=== PATIENT | female | born 1950 | race Caucasian/White ===

== ENCOUNTER 2016-03-02 10:11 | Outpatient (CLI) | payer MEDICAID, OTHER | END 2016-03-02 10:12 | disposition home or self-care (01) | DX: Z12.31 Encounter for screening mammogram for malignant neoplasm of breast (principal) ==

== ENCOUNTER 2016-03-06 07:36 | Outpatient (CLI) | payer OTHER | END 2016-03-06 07:37 | disposition home or self-care (01) | DX: Z01.419 Encounter for gynecological examination (general) (routine) without abnormal findings (principal) ==

== ENCOUNTER 2016-10-15 12:32 | Emergency (ER) | payer OTHER ==
[2016-10-15] MEDS ORDERED: KETOROLAC 60 MG/2 ML VIAL IVP STA (13:16)
[2016-10-15] MEDS ORDERED: AMOX/CLAV 875 MG/125 MG TABLET PO STA (13:17)
--- NOTE | 2016-10-15 13:19 | ED Physician Documentation ---
PD HPI ABD PAIN - Stated complaint Stated Complaint: ABD PX/CONSTIPATION - Chief complaint Chief Complaint: Abd Pain - History obtained from History obtained from: Patient - History of Present Illness Timing - onset: How many days ago (2) Timing - duration: Days (2) Timing - details: Gradual onset Pain level max: 7 Pain level now: 5 Quality: Aching, Pain Location: LLQ Radiation: Other (non-radiating) Improved by: Other (nothing) Worsened by: Palpation Associated symptoms: No: Fever, Nausea, Vomiting, Hematemesis, Diarrhea, Constipation, Melena, Hematochezia, Dysuria Similar symptoms before: Diagnosis (states diverticulitis 10x in past 7 years. States reportedly normal colonoscopy 2 years ago.) Recently seen: Not recently seen Review of Systems Ten Systems: 10 systems reviewed and negative Constitutional: denies: Fever, Chills Ears: denies: Ear pain Nose: denies: Rhinorrhea / runny nose, Congestion Throat: denies: Sore throat Cardiac: denies: Chest pain / pressure Respiratory: denies: Cough GI: denies: Nausea, Vomiting, Diarrhea Skin: denies: Rash Musculoskeletal: denies: Neck pain, Back pain Neurologic: denies: Focal weakness, Numbness, Headache PD PAST MEDICAL HISTORY - Past Medical History Cardiovascular: None Respiratory: None Endocrine/Autoimmune: None GI: Diverticulitis : None HEENT: None Psych: Anxiety Musculoskeletal: Chronic back pain Derm: Eczema - Past Surgical History Past Surgical History: Yes General: Colonoscopy Ortho: Arthroscopic surgery, Carpal Tunnel surgery, Spine surgery - Present Medications Home Medications: Ambulatory Orders Medication Instructions Recorded Confirmed Amox/Clav 875/125 [Augmentin] 1 each PO Q12H #20 tablet 10/15/16 Hydrocodone/Acetaminophen 1 - 2 each PO Q6H PRN #14 tablet 10/15/16 [Hydrocodon-Acetaminophen 5-325] - Allergies Allergies/Adverse Reactions: Allergies Allergy/AdvReac Type Severity Reaction Status Date / Time No Known Drug Allergies Allergy Verified 06/27/14 08:37 - Social History Does the pt smoke?: No Smoking Status: Never smoker Does the pt drink ETOH?: Yes Does the pt have substance abuse?: Yes Substance Use and Type: Marijuana - Immunizations Immunizations are current?: Yes - POLST Patient has POLST: No PD ED PE NORMAL - Vitals Vital signs reviewed: Yes - General General: Alert and oriented X 3, No acute distress, Well developed/nourished - HEENT HEENT: PERRL, Moist mucous membranes - Neck Neck: Supple, no meningeal sign - Cardiac Cardiac: RRR, Strong equal pulses - Respiratory Respiratory: No respiratory distress, Clear bilaterally - Abdomen Abdomen: Soft, Non distended, Other (TTP LLQ, no peritoneal signs) - Back Back: No CVA TTP, No spinal TTP - Derm Derm: Warm and dry - Neuro Neuro: Alert and oriented X 3 - Psych Psych: Normal mood, Normal affect Results - Vitals Vitals: Vital Signs - 24 hr 10/15/16 10/15/16 12:39 15:02 Temperature 35.4 C L 36.7 C Heart Rate 72 68 Respiratory 18 18 Rate Blood Pressure 137/86 H 134/84 H O2 Saturation 100 99 Oxygen O2 Source Room air - Labs Labs: Laboratory Tests 10/15/16 10/15/16 10/15/16 13:10 14:24 14:24 WBC 8.5 RBC 4.28 Hgb 13.4 Hct 39.6 MCV 92.5 MCH 31.2 H MCHC 33.8 RDW 13.5 Plt Count 331 MPV 8.0 Neut # 5.6 Lymph # 2.1 [place] # 0.6 Eos # 0.1 Baso # 0.1 Absolute Nucleated RBC 0.00 Nucleated RBCs 0.0 Sodium 139 Potassium 3.4 L Chloride 107 Carbon Dioxide 24 Anion Gap 8.0 BUN 13 Creatinine 1.0 Estimated GFR (MDRD) 56 L Glucose 113 H Calcium 9.0 Total Bilirubin 0.9 AST 21 ALT 20 Alkaline Phosphatase 86 Total Protein 6.6 L Albumin 3.8 Globulin 2.8 Albumin/Globulin Ratio 1.4 Lipase 22 Urine Color DARK YELLOW Urine Clarity CLEAR Urine pH 5.5 Ur Specific [place] 1.025 Urine Protein NEGATIVE Urine Glucose (UA) NEGATIVE Urine Ketones 15 H Urine Occult Blood NEGATIVE Urine Nitrite NEGATIVE Urine Bilirubin NEGATIVE Urine Urobilinogen 0.2 (NORMAL) Ur Leukocyte Esterase NEGATIVE Ur Microscopic Review NOT INDICATED Urine Culture Comments NOT INDICATED PD MEDICAL DECISION MAKING - ED course Complexity details: reviewed results, re-evaluated patient, considered differential, d/w patient ED course: Patient is a 66-year-old female with left lower quadrant abdominal pain, has a history of recurrent diverticulitis. No peritoneal signs on exam, normal white blood cell count, will hold CT at this time given her past history. No evidence of perforation or abscess clinically. Patient is comfortable with holding CT, she will return if she worsens or fails to improve in the next 2 days. Patient is very well-appearing, nontoxic. Afebrile. Tolerating p.o. without difficulty. Patient counseled regarding signs and symptoms for which I believe and urgent re-evaluation would be necessary. Patient with good understanding of and agreement to plan and is comfortable going home at this time This document was made in part using voice recognition software. While efforts are made to proofread this document, sound alike and grammatical errors may occur. Departure - Departure Disposition: Home, Self Care Clinical Impression: Diverticulitis Condition: Good Instructions: ED Diverticulitis Follow-Up: Rosalia Jules ARNP [Primary Care Provider] - Within 1 week Prescriptions: Amox/Clav 875/125 [Augmentin] 1 each PO Q12H #20 tablet Hydrocodone/Acetaminophen [Hydrocodon-Acetaminophen 5-325] 1 - 2 each PO Q6H PRN #14 tablet PRN Reason: pain Comments: Take all antibiotics until gone. Return if you worsen. Do not drink alcohol or drive while on narcotic pain medicine. Note that many narcotic pain relievers also contain tylenol/acetaminophen. Please ensure that your total dose of acetaminophen from all sources does not exceed 3 grams (3000mg) per day. You may constipated on this medication, take a stool softener such as "Colace" twice a day while you are on it. Also recommend a anoy-lvd-ohrzjxe laxative such as senna or MiraLAX any day that you do not have a bowel movement. If you received narcotic pain medication in the emergency department, do not drive or operate machinery for the next 24 hours. Your blood pressure was elevated today on check in to the emergency department. This does not mean that you have hypertension, it is a common phenomenon to check into the emergency department and have elevated blood pressure. I recommend that you see your primary care physician within the week to have it rechecked when you're feeling better. Discharge Date/Time: 10/15/16 15:05
[2016-10-15] MEDS ORDERED: AMOX/CLAV 875 MG/125 MG TABLET PO ONE (13:29)
[2016-10-15] MEDS ORDERED: KETOROLAC 30 MG/ML VIAL ONE (13:29)
[2016-10-15 13:41] LABS: PH,URINE 5.5 PH (5.0-7.5); UA CHARGE (STRIP ONLY) YES; UR CULTURE IF IND NOT INDICATED
[2016-10-15 13:46] LABS: BILIRUBIN,URINE NEGATIVE (NEGATIVE)
[2016-10-15 14:41] LABS: ALBUMIN/GLOBULIN RATIO 1.4 (1.0-2.2); BILIRUBIN,TOTAL 0.9 mg/dL (0.2-1.0); POTASSIUM 3.4 mmol/L (3.5-5.0); TOTAL PROTEIN 6.6 g/dL (6.7-8.2)
[2016-10-15 14:43] LABS: BASOPHILS # (AUTO) 0.1 10^3/uL (0.0-0.1); BASOPHILS % (AUTO) 0.8 %; EOSINOPHILS # (AUTO) 0.1 10^3/uL (0.0-0.7); EOSINOPHILS % (AUTO) 1.7 %; HCT - HEMATOCRIT 39.6 % (37.0-47.0); HGB - HEMOGLOBIN 13.4 g/dL (12.0-16.0); LYMPHOCYTES # (AUTO) 2.1 10^3/uL (1.5-3.5); LYMPHOCYTES % (AUTO) 25.3 %; MEAN CORPUSCULAR HEMOGLOBIN 31.2 pg (27.0-31.0); MEAN CORPUSCULAR HGB CONC 33.8 g/dL (32.0-36.0); MEAN CORPUSCULAR VOLUME 92.5 fL (81.0-99.0); MONOCYTES # (AUTO) 0.6 10^3/uL (0.0-1.0); MONOCYTES % (AUTO) 6.6 %; NEUTROPHILS # (AUTO) 5.6 10^3/uL (1.5-6.6); NEUTROPHILS % (AUTO) 65.6 %; RED BLOOD COUNT 4.28 10^6/uL (4.20-5.40); RED CELL DISTRIBUTION WIDTH 13.5 % (12.0-15.0); UNCORRECTED WHITE BLOOD COUNT 8.5 x10^3/uL; WHITE BLOOD COUNT 8.5 x10^3/uL (4.8-10.8)
[2016-10-15 15:03] VITALS: BP 134/84
== END 2016-10-15 15:05 | disposition home or self-care (01) ==
LOC: ED 12:32
DX: K57.32 Diverticulitis of large intestine without perforation or abscess without bleeding (principal); R03.0 Elevated blood-pressure reading, without diagnosis of hypertension
CPT/HCPCS: 36415; 80053; 81003; 83690; 85025; 96374; 99283; 99284; A9270; 81001; 87086

== ENCOUNTER 2018-04-02 12:58 | Observation (INO) | payer MEDICARE, OTHER ==
[2018-04-02] MEDS ORDERED: SODIUM CHLORIDE 0.9% 1,000 ML IV ONE (13:29)
[2018-04-02] MEDS ORDERED: ONDANSETRON 4 MG/2 ML VIAL IVP STA (13:29)
--- NOTE | 2018-04-02 13:30 | ED Physician Documentation ---
PD HPI ABD PAIN - Stated complaint Stated Complaint: NAUSEA/VOMITING - Chief complaint Chief Complaint: Abd Pain - History obtained from History obtained from: Patient - History of Present Illness Timing - onset: Yesterday (This is a 67-year-old woman with flares of occasional diverticulitis who developed lower abdominal pain especially left lower quadrant yesterday. She went to the clinic and was prescribed Augmentin. After she started the Augmentin she is been vomiting uncontrollably, every few minutes. There is no blood in it. She denies diarrhea. She has not had this problem with her diverticulitis before and she thinks she has had Augmentin before without vomiting.) Review of Systems Ten Systems: 10 systems reviewed and negative Constitutional: reports: Sweats. denies: Fever, Chills GI: reports: Abdominal Pain, Nausea, Vomiting. denies: Diarrhea : reports: Reviewed and negative PD PAST MEDICAL HISTORY - Past Medical History Cardiovascular: None Respiratory: None Endocrine/Autoimmune: None GI: Diverticulitis : None HEENT: None Psych: Anxiety Musculoskeletal: Chronic back pain Derm: Eczema - Past Surgical History Past Surgical History: Yes General: Colonoscopy Ortho: Arthroscopic surgery, Carpal Tunnel surgery, Spine surgery - Present Medications Home Medications: Ambulatory Orders Medication Instructions Recorded Confirmed Amox/Clav 875/125 [Augmentin] 1 each PO Q12H #20 tablet 10/15/16 Hydrocodone/Acetaminophen 1 - 2 each PO Q6H PRN #14 tablet 10/15/16 [Hydrocodon-Acetaminophen 5-325] - Allergies Allergies/Adverse Reactions: Allergies Allergy/AdvReac Type Severity Reaction Status Date / Time No Known Drug Allergies Allergy Verified 06/27/14 08:37 - Social History Does the pt smoke?: No Smoking Status: Never smoker Does the pt drink ETOH?: Yes Does the pt have substance abuse?: Yes - Immunizations Immunizations are current?: Yes - POLST Patient has POLST: No PD ED PE NORMAL - Vitals Vital signs reviewed: Yes - General General: Alert and oriented X 3, Other (She is retching and sweaty) - HEENT HEENT: PERRL, EOMI - Neck Neck: Supple, no meningeal sign, No bony TTP - Cardiac Cardiac: RRR, No murmur - Respiratory Respiratory: No respiratory distress, Clear bilaterally - Abdomen Abdomen: Other (Mild tenderness in the left lower quadrant without surgical signs. Soft. I am unable to test bowel tones on initial evaluation due to active retching) - Back Back: No CVA TTP, No spinal TTP - Derm Derm: Normal color, Warm and dry - Extremities Extremities: No edema, No calf tenderness / cord - Neuro Neuro: Alert and oriented X 3, Normal speech Results - Vitals Vitals: Vital Signs - 24 hr 04/02/18 13:02 Temperature 36.6 C Heart Rate 94 Respiratory 16 Rate Blood Pressure 153/94 H O2 Saturation 99 Oxygen O2 Source Room air - Labs Labs: Laboratory Tests 04/02/18 04/02/18 13:26 13:26 WBC 18.0 H RBC 4.70 Hgb 15.4 Hct 46.4 MCV 98.7 MCH 32.8 H MCHC 33.2 RDW 14.4 Plt Count 336 MPV 8.1 Neut # (Auto) 16.0 H Lymph # (Auto) 0.8 L [place] # (Auto) 1.0 Eos # (Auto) 0.1 Baso # (Auto) 0.1 Absolute Nucleated RBC 0.00 Nucleated RBC % 0.0 Sodium 133 L Potassium 3.5 Chloride 98 L Carbon Dioxide 24 Anion Gap 11.0 BUN 13 Creatinine 1.0 Estimated GFR (MDRD) 56 L Glucose 135 H Calcium 9.1 Total Bilirubin 1.6 H AST 51 H ALT 56 Alkaline Phosphatase 153 H Total Protein 7.3 Albumin 4.0 Globulin 3.3 Albumin/Globulin Ratio 1.2 Lipase 24 - Rads (name of study) CT A/P Radiology: EMP read contemporaneously (Uncomplicated sigmoid diverticulitis) PD MEDICAL DECISION MAKING - ED course ED course: 67-year-old woman with recurrent diverticulitis Presents with Apparent exacerbation of same although marked by severe nausea and vomiting which given that the timing is likely related to the antibiotic she was started on yesterday, Augmentin. It was difficult to control her nausea and vomiting in the emergency department. CT imaging shows uncomplicated diverticulitis, although she does have a pretty significantly elevated white blood cell count of 18,000. Given the persistent nausea and vomiting that we were unable to easily control in the emergency department she requested admission and this is not unreasonable and I spoke with Dr. Aguila for admission at 3:34 PM. Departure - Departure Disposition: [facility] DC/Xfer Clinical Impression: Diverticulitis of gastrointestinal tract Condition: Serious
[2018-04-02 13:34] LABS: BASOPHILS # (AUTO) 0.1 10^3/uL (0.0-0.1); BASOPHILS % (AUTO) 0.4 %; EOSINOPHILS # (AUTO) 0.1 10^3/uL (0.0-0.7); EOSINOPHILS % (AUTO) 0.5 %; HGB - HEMOGLOBIN 15.4 g/dL (12.0-16.0); LYMPHOCYTES # (AUTO) 0.8 10^3/uL (1.5-3.5); LYMPHOCYTES % (AUTO) 4.3 %; MEAN CORPUSCULAR HEMOGLOBIN 32.8 pg (27.0-31.0); MEAN CORPUSCULAR HGB CONC 33.2 g/dL (32.0-36.0); MEAN CORPUSCULAR VOLUME 98.7 fL (81.0-99.0); MEAN PLATELET VOLUME 8.1 fL (7.9-10.8); MONOCYTES % (AUTO) 5.5 %; NEUTROPHILS % (AUTO) 89.3 %; PLT - PLATELET COUNT 336 10^3/uL (130-450); RED CELL DISTRIBUTION WIDTH 14.4 % (12.0-15.0)
[2018-04-02 13:47] LABS: ALBUMIN/GLOBULIN RATIO 1.2 (1.0-2.2); BILIRUBIN,TOTAL 1.6 mg/dL (0.2-1.0); CALCIUM 9.1 mg/dL (8.5-10.3); TOTAL PROTEIN 7.3 g/dL (6.7-8.2)
[2018-04-02] MEDS ORDERED: IOVERSOL 320 100 ML VIAL IVP ONE ×2 (13:56→14:08)
--- NOTE | 2018-04-02 14:37 | CT Report ---
Reason: IV only, LLQ pain Procedure Date: 04/02/2018 Accession Number: [id number] / [id number] Procedure: CT - Abdomen/Pelvis W CPT Code: FULL RESULT: EXAM: CT ABDOMEN AND PELVIS EXAM DATE: 04/02/2018 02:04 PM. CLINICAL HISTORY: IV only, LLQ pain. COMPARISONS: ABDOMEN/PELVIS W/ 06/27/2014 10:44 AM. TECHNIQUE: Routine helical CT imaging was performed through the abdomen and pelvis. IV contrast: 100 cc of Optiray 320. Enteric contrast: No. Reconstructions: Coronal and sagittal. In accordance with CT protocol optimization, one or more of the following dose reduction techniques were utilized for this exam: automated exposure control, adjustment of mA and/or KV based on patient size, or use of iterative reconstructive technique. FINDINGS: Lung Bases: Small paraesophageal hernia. No effusion. Dependent atelectasis is noted. Liver: Normal. No masses. Gallbladder/Bile Ducts: Unremarkable. Spleen: Normal. Pancreas: Normal. Adrenal Glands: Normal. Kidneys: Normal. No masses or hydronephrosis. Peritoneal Cavity/Bowel: No pneumoperitoneum, mass or adenopathy. No collection is noted. There is a long segment of inflamed sigmoid colon demonstrating moderate wall thickening and moderate adjacent fat inflammatory changes. No pneumoperitoneum, mass or loculated collection. Small volume ascites is present. Remaining stomach and small bowel are normal. The appendix is well visualized and normal. Pelvic Organs: Inflammatory changes are noted in the pelvis CT to sigmoid inflammation. Small amount of nonloculated fluid is noted. Otherwise, the bladder and visualized pelvic organs are within normal limits. No collections or adenopathy. No pelvic masses noted. Vasculature: No aneurysms or other significant abnormality. Bones: No osteoblastic or osteolytic lesions are noted. Multilevel degenerative disk disease and facet arthropathy is noted. Mild dextroscoliosis of the lumbar spine is noted. Mild to moderate bilateral hip arthritis. Other: None. IMPRESSION: 1. Sigmoid diverticulitis. No complications such as obstruction, perforation or abscess. Free fluid noted in the pelvis. 2. Normal appendix. RADIA
[2018-04-02] MEDS ORDERED: PROMETHAZINE INJ 25 MG in SODIUM CHLORIDE 0.9% 50 ML IV STA (14:42)
[2018-04-02] MEDS ORDERED: levoFLOXacin 750 MG/150 ML 750 MG/150 ML BAG IV ONE (14:52)
[2018-04-02] MEDS ORDERED: metroNIDAZOLE 500 MG/100 ML 500 MG/100 ML BAG IV ONE (14:52)
[2018-04-02] MEDS ORDERED: HYDROmorphone 1 MG/ML CARPUJECT IVP STA (15:30)
[2018-04-02] MEDS ORDERED: METOCLOPRAMIDE 10 MG/2 ML VIAL IVP STA (15:43)
[2018-04-02] MEDS ORDERED: METOCLOPRAMIDE 10 MG/2 ML VIAL ONE (15:48)
--- NOTE | 2018-04-02 15:51 | HISTORY & PHYSICAL EXAMINATION ---
Chief Complaint - Chief Complaint Chief Complaint: vomiting History of Present Illness - Admitted From Admitted From:: Home - History Obtained From Records Reviewed: ED notes reviewed, History obtained from: Patient and ED - History of Present Illness HPI Comment/Other: 67 year old female with known diverticulosis, and history of diverticulitis "at least 10 x per patient" presented with nausea vomiting after starting Augmentin as outpatient for presumed Diverticulitis. She has known divericulitis with prior hx of diverticulisits, ("~ 10x per patient"). Usually managed at home as outpatient with clear liquids, antibiotics, and advance diet as tolerated. She has had a colonoscopy ~ 4 yrs ago. Never has had a surgical consultation re; possible sigmoid resection. She developed LLQ abdominal pain 03/31 (Sunday) typical of her diverticulitis. Did feel chilled but did not check temperature, , No nausea/ vomiting at that time. No dysuria, no diarrahea, had a soft BM. No blood , no mucus Saw PCP and was prescribed Augmentin for presumed diverticulitis . No imaging or labs drawn at that time, Subsequesnt to starting Augmentin she has developed intractible vomiting, (but didnt get the first dose of Augmentin til late in day) She HAS taken Augmentin in past for diverticulitis, NOT with SE of nausea/vomiting In ED today, hemodynamically stable, with leukocytosis 18K, no bands, Exam notable for LLQ fairly localized tenderness, CT abdomen with sigmoid inflammation, small paraesophageal hernia., , no ductal dilatation, ducts, GB no rmal on imaging ED started levofloxacin / Flagyl, and IV fluid. History - Past Medical History Cardiovascular: reports: None Respiratory: reports: None Neuro: reports: None Endocrine/Autoimmune: reports: None GI: reports: Diverticulitis : reports: None HEENT: reports: None Psych: reports: Anxiety (smokes pot daily as "management") Musculoskeletal: reports: Chronic back pain (smokes marijuana, also uses heating pad) Derm: reports: Eczema MRSA Hx?: No - Past Surgical History General: reports: Colonoscopy (had colonoscopy ~ 4 yrs ago) Ortho: reports: Arthroscopic surgery, Carpal Tunnel surgery, Spine surgery - Family & Social History Family History: Mother: (ischemic bowel(mom), old age ~ 100 dad ), Father: Living arrangement: At home Social History Notes: has 2 sons, healthy, 1 34, 1 37, both fairly local. Patient is an artist / systems designer in [place] - Substance History Use: Uses substance without health or social issues: Alcohol (drinks ~ 2 whisky and 7ups daily, denies ever having withdrawal, can stop w/o issue), Cannabis (smokes cannabis daily, for anxiety managment, and somewhat for pain (LBP)) Dependence: Experiences withdrawal or developed tolerances: NONE - POLST Patient has POLST: No POLST Status: Full Code (discussed with patient) Meds/Allgy - Home Medications Home Medications: Ambulatory Orders Medication Instructions Recorded Confirmed Fiber Gummy 1 ea PO DAILY 04/02/18 04/02/18 Ibuprofen 200 mg PO Q8H PRN 04/02/18 04/02/18 - Allergies Allergies/Adverse Reactions: Allergies Allergy/AdvReac Type Severity Reaction Status Date / Time No Known Drug Allergies Allergy Verified 06/27/14 08:37 Review of Systems - Constitutional Constitutional: reports: Chills (did not check temperature) - Eyes Eyes: reports: Corrective lenses - Ears, Nose & Throat Ears, Nose & Throat: denies: Vertigo, Nasal discharge, Nasal congestion - Cardiovascular Cariovascular: denies: Palpitations, Chest pain, Lightheadedness - Respiratory Respiratory: denies: Cough, Wheezing - Gastrointestinal Gastrointestinal: reports: Other (As per HPI) - Genitourinary Genitourinary: denies: Dysuria, Frequency, Urgency - Musculoskeletal Musculoskeletal: reports: Other (chronic low back pain) - Integumentary Integumentary: reports: Other (excema,not on meds) - Neurological Neurological: denies: General weakness - Endocrine Endocrine: denies: Polyuria, Polydypsia Exam - Vital Signs Vital Signs: Vital Signs x48h Temp Pulse Resp BP Pulse Ox 04/02/18 13:02 36.6 C 94 16 153/94 H 99 - Physical Exam General Appearance: positive: No acute distress, Other (looks tired,) Eyes Bilateral: positive: PERRL, EOMI ENT: positive: Other (Adequate dentition) Respiratory: positive: No respiratory distress, Breath sounds nml Cardiovascular: positive: Regular rate & rhythm, No murmur Peripheral Pulses: positive: 2+ (radial) Abdomen: positive: Nml bowel sounds (localized tenderness with deep palpation LLQ, no guarding, no RBT), No distention, Tenderness. negative: Rebound Back: positive: Other (no point tenderness) Skin: positive: Warm, Dry Extremities: positive: Non-tender. negative: Pedal edema Neurologic/Psychiatric: positive: Oriented x3, Mood/affect nml Conclusion/Plan - Problem List (1) Sigmoid diverticulitis Conclusion/Plan: Sigmoid Diverticulitis confirmed on imaging/uncomplicated/ no pneumoperitoneum no abscess -Continue antibiotics, but change to levofloxacin/ flagyl -IV hydration - clear liquids for now - serial exams Leukocytosis likley related to same/ recheck in am/ expect improvement After d/c consider outpatiient surgical consultation since has had before (2) Leukocytosis Conclusion/Plan: 2) leukocytosis; as above suspect r/t #1/ no bandemia re check in AM (3) Nausea & vomiting Conclusion/Plan: 3) N/V ? related to Augmentin (and also r/t primary problem) Given that she has tolerated augmentin in past,I suspect more likely the N/v is related tothe primary infection (and had progressed to the point of assoicated N/V ~ time she got her 1st dose Augmentin) prn Zofran (4) Elevated bilirubin Conclusion/Plan: Mild elevation 1.6, ? [place] since not taking PO, recheck in am if elevated still on 04/03 will fractionate (5) Venous thromboembolism (VTE) prophylaxis provided within 24 hours of arrival Conclusion/Plan: VTE prophylaxis Lovenox 40 mg/ day Code Status Full - Lab Results Fish Bones: 04/03/18 04:30 04/03/18 04:30 Core Measures - Anticipated LOS I expect patient to be DC'd or transferred within 96 hours.: Yes - Issues Hospital Issues and Management Plan: 1
[2018-04-02] MEDS ORDERED: levoFLOXacin 750 MG/150 ML 750 MG/150 ML BAG IV SCH (16:00)
[2018-04-02] MEDS: SODIUM CHLORIDE 0.9% 1,000 ML IV SCH ×2 (17:03→21:07)
[2018-04-02] MEDS: SODIUM CHLORIDE FLUSH 0.9% 10 ML SYRINGE IVP SCH (17:07)
[2018-04-02 20:17] LABS: GLUCOSE, URINE (UA) NEGATIVE (NEGATIVE); KETONES,URINE (UA) >=80 mg/dL (NEGATIVE); LEUKOCYTE ESTERASE, URINE NEGATIVE (NEGATIVE); NITRITE,URINE NEGATIVE (NEGATIVE); OCCULT BLOOD,URINE NEGATIVE (NEGATIVE); PH,URINE 6.5 PH (5.0-7.5); PROTEIN,URINE 30 mg/dL (NEGATIVE); UROBILINOGEN,URINE 0.2 (NORMAL) E.U./dL (NORMAL)
[2018-04-02 20:22] LABS: BILIRUBIN,URINE NEGATIVE (NEGATIVE); CLARITY,URINE CLEAR (CLEAR); ICTOTEST,URINE NEGATIVE
[2018-04-02 20:30] LABS: BACTERIA,URINE None Seen /HPF (None Seen); RBC,URINE None Seen /HPF (0-5); SQUAMOUS EPITHELIAL CELL,UR RARE Squamous (<= Few)
[2018-04-02] MEDS ORDERED: HYDROmorphone 2 MG/ML VIAL IVP PRN (21:33)
[2018-04-02] MEDS ORDERED: HYDROmorphone 1 MG/ML CARPUJECT IVP PRN ×2 (22:00→22:51)
[2018-04-02] MEDS: metroNIDAZOLE 500 MG/100 ML 500 MG/100 ML BAG IV SCH (22:18)
[2018-04-03] MEDS: SODIUM CHLORIDE FLUSH 0.9% 10 ML SYRINGE IVP SCH ×4 (02:06→23:49)
[2018-04-03 04:56] LABS: BASOPHILS # (AUTO) 0.1 10^3/uL (0.0-0.1); BASOPHILS % (AUTO) 0.8 %; EOSINOPHILS # (AUTO) 0.2 10^3/uL (0.0-0.7); EOSINOPHILS % (AUTO) 1.5 %; HGB - HEMOGLOBIN 13.7 g/dL (12.0-16.0); LYMPHOCYTES # (AUTO) 1.5 10^3/uL (1.5-3.5); LYMPHOCYTES % (AUTO) 12.8 %; MEAN CORPUSCULAR HEMOGLOBIN 32.3 pg (27.0-31.0); MEAN CORPUSCULAR HGB CONC 33.2 g/dL (32.0-36.0); MEAN CORPUSCULAR VOLUME 97.4 fL (81.0-99.0); MEAN PLATELET VOLUME 8.1 fL (7.9-10.8); MONOCYTES # (AUTO) 0.8 10^3/uL (0.0-1.0); MONOCYTES % (AUTO) 6.9 %; NEUTROPHILS # (AUTO) 9.1 10^3/uL (1.5-6.6); PLT - PLATELET COUNT 300 10^3/uL (130-450); RED BLOOD COUNT 4.23 10^6/uL (4.20-5.40); RED CELL DISTRIBUTION WIDTH 14.4 % (12.0-15.0); WHITE BLOOD COUNT 11.6 x10^3/uL (4.8-10.8)
[2018-04-03 05:09] LABS: ALBUMIN 3.4 g/dL (3.2-5.5); ALBUMIN/GLOBULIN RATIO 1.1 (1.0-2.2); CALCIUM 8.9 mg/dL (8.5-10.3); CREATININE 1.1 mg/dL (0.4-1.0); TOTAL PROTEIN 6.5 g/dL (6.7-8.2)
[2018-04-03] MEDS: ONDANSETRON 4 MG/2 ML VIAL IVP PRN ×2 (05:12→14:38)
[2018-04-03] MEDS: HYDROmorphone 0.5 MG/0.5 ML SYRINGE IVP PRN ×4 (06:29→22:52)
[2018-04-03] MEDS: metroNIDAZOLE 500 MG/100 ML 500 MG/100 ML BAG IV SCH ×3 (06:30→22:57)
[2018-04-03] MEDS: SODIUM CHLORIDE FLUSH 0.9% 10 ML SYRINGE IVP PRN ×2 (06:30→22:52)
[2018-04-03] MEDS: POLYETHYLENE GLYCOL 3350 17 GM PACKET PO SCH (08:51)
[2018-04-03] MEDS: ENOXAPARIN 40 MG/0.4 ML SYRINGE SUBQ SCH (08:51)
[2018-04-03] MEDS: SODIUM CHLORIDE 0.9% 1,000 ML IV SCH ×2 (08:52→22:48)
--- NOTE | 2018-04-03 13:13 | PROVIDER PROGRESS NOTE ---
Subjective - Prog Note Date Prog Note Date: 04/03/18 Prog Note Time: 13:23 (seen ~ 9am) - Subjective Pt reports feeling: Improved (but still LLQ pain, and still nauseated) Current Medications - Current Medications Current Medications: Active Medications Enoxaparin Sodium (Lovenox) 40 mg SUBQ DAILY [facility] Last Admin: 04/03/18 08:51 Dose: 40 mg Hydromorphone HCl (Dilaudid Inj Syringe) 0.5 mg IVP Q2H PRN PRN Reason: PAIN Last Admin: 04/03/18 08:50 Dose: 0.5 mg Sodium Chloride (Normal Saline 0.9%) 1,000 mls @ 100 mls/hr IV .Q10H [facility] Last Admin: 04/03/18 08:52 Dose: 100 mls/hr Metronidazole (Flagyl 500 Mg/100 Ml) 500 mg in 100 mls @ 100 mls/hr IV Q8H [facility] Last Infusion: 04/03/18 07:50 Dose: Infused Levofloxacin (Levaquin 750 Mg/150 Ml) 750 mg in 150 mls @ 100 mls/hr IV Q24H [facility] Ondansetron HCl (Zofran Inj) 4 mg IVP Q6HR PRN PRN Reason: Nausea / Vomiting Last Admin: 04/03/18 05:12 Dose: 4 mg Polyethylene Glycol (Miralax) 17 gm PO DAILY [facility] Last Admin: 04/03/18 08:51 Dose: 17 gm Sodium Chloride (Normal Saline Flush 0.9%) 10 ml IVP PRN PRN PRN Reason: NEEDED PER PROVIDER ORDERS Last Admin: 04/03/18 06:30 Dose: 10 ml Sodium Chloride (Normal Saline Flush 0.9%) 10 ml IVP 0100,0900,1700 [facility] Last Admin: 04/03/18 05:11 Dose: 10 ml Fiber Gummy 1 ea PO DAILY 04/02/18 Ibuprofen 200 mg PO Q8H PRN 04/02/18 Objective - Vital Signs/Intake & Output Reviewed Vital Signs: Yes Vital Signs: Vital Signs x48h Temp Pulse Resp BP Pulse Ox 04/03/18 07:59 36.4 C L 92 14 157/76 H 98 Intake & Output: Intake & Output 03/31/18 04/01/18 04/02/18 04/03/18 23:59 23:59 23:59 23:59 Intake Total 0834.313 5094 Output Total 978 551 Balance 1178.621 5596 - Objective General Appearance: positive: No acute distress, Alert, Other (looks tired, but nontoxic) Eyes Bilateral: positive: Normal inspection Respiratory: positive: No respiratory distress, Breath sounds nml Cardiovascular: positive: Regular rate & rhythm, No murmur Abdomen: positive: Nml bowel sounds, No distention. negative: Tenderness (tender LLQ to deep palpation, no RBT, no guarding) Skin: positive: Warm, Dry Neurologic/Psychiatric: positive: Oriented x3, Mood/affect nml - Lab Results Fish Bones: 04/03/18 04:30 04/03/18 04:30 Other Labs: Lab Results x24hrs 04/03/18 04/03/18 04/02/18 Range/Units 04:30 04:30 19:40 WBC 11.6 H (4.8-10.8) x10^3/uL RBC 4.23 (4.20-5.40) 10^6/uL Hgb 13.7 (12.0-16.0) g/dL Hct 41.2 (37.0-47.0) % MCV 97.4 (81.0-99.0) fL MCH 32.3 H (27.0-31.0) pg MCHC 33.2 (32.0-36.0) g/dL RDW 14.4 (12.0-15.0) % Plt Count 300 (130-450) 10^3/uL MPV 8.1 (7.9-10.8) fL Neut # (Auto) 9.1 H (1.5-6.6) 10^3/uL Lymph # (Auto) 1.5 (1.5-3.5) 10^3/uL Lawrence # (Auto) 0.8 (0.0-1.0) 10^3/uL Eos # (Auto) 0.2 (0.0-0.7) 10^3/uL Baso # (Auto) 0.1 (0.0-0.1) 10^3/uL Absolute Nucleated RBC 0.01 x10^3/uL Nucleated RBC % 0.1 /100WBC Sodium 140 (135-145) mmol/L Potassium 3.7 (3.5-5.0) mmol/L Chloride 106 (101-111) mmol/L Carbon Dioxide 22 (21-32) mmol/L Anion Gap 12.0 (6-13) BUN 14 (6-20) mg/dL Creatinine 1.1 H (0.4-1.0) mg/dL Estimated GFR (MDRD) 50 L (>89) Glucose 100 (70-100) mg/dL Calcium 8.9 (8.5-10.3) mg/dL Total Bilirubin 1.0 (0.2-1.0) mg/dL AST 27 (10-42) IU/L ALT 38 (10-60) IU/L Alkaline Phosphatase 128 H (42-121) IU/L Total Protein 6.5 L (6.7-8.2) g/dL Albumin 3.4 (3.2-5.5) g/dL Globulin 3.1 (2.1-4.2) g/dL Albumin/Globulin Ratio 1.1 (1.0-2.2) Lipase (22-51) U/L Urine Color DARK YELLOW Urine Clarity CLEAR (CLEAR) Urine pH 6.5 (5.0-7.5) PH Ur Specific [place] 1.015 (1.002-1.030) Urine Protein 30 H (NEGATIVE) mg/dL Urine Glucose (UA) NEGATIVE (NEGATIVE) mg/dL Urine Ketones >=80 H (NEGATIVE) mg/dL Urine Occult Blood NEGATIVE (NEGATIVE) Urine Nitrite NEGATIVE (NEGATIVE) Urine Bilirubin NEGATIVE (NEGATIVE) Urine Urobilinogen 0.2 (NORMAL) (NORMAL) E.U./dL Ur Leukocyte Esterase NEGATIVE (NEGATIVE) Urine RBC None Seen (0-5) /HPF Urine WBC 0-3 (0-5) /HPF Ur Squamous Epith Cells RARE Squamous (<= Few) Urine Bacteria None Seen (None Seen) /HPF Ur Microscopic Review INDICATED Urine Culture Comments NOT INDICATED 04/02/18 04/02/18 Range/Units 13:26 13:26 WBC 18.0 H (4.8-10.8) x10^3/uL RBC 4.70 (4.20-5.40) 10^6/uL Hgb 15.4 (12.0-16.0) g/dL Hct 46.4 (37.0-47.0) % MCV 98.7 (81.0-99.0) fL MCH 32.8 H (27.0-31.0) pg MCHC 33.2 (32.0-36.0) g/dL RDW 14.4 (12.0-15.0) % Plt Count 336 (130-450) 10^3/uL MPV 8.1 (7.9-10.8) fL Neut # (Auto) 16.0 H (1.5-6.6) 10^3/uL Lymph # (Auto) 0.8 L (1.5-3.5) 10^3/uL Lawrence # (Auto) 1.0 (0.0-1.0) 10^3/uL Eos # (Auto) 0.1 (0.0-0.7) 10^3/uL Baso # (Auto) 0.1 (0.0-0.1) 10^3/uL Absolute Nucleated RBC 0.00 x10^3/uL Nucleated RBC % 0.0 /100WBC Sodium 133 L (135-145) mmol/L Potassium 3.5 (3.5-5.0) mmol/L Chloride 98 L (101-111) mmol/L Carbon Dioxide 24 (21-32) mmol/L Anion Gap 11.0 (6-13) BUN 13 (6-20) mg/dL Creatinine 1.0 (0.4-1.0) mg/dL Estimated GFR (MDRD) 56 L (>89) Glucose 135 H (70-100) mg/dL Calcium 9.1 (8.5-10.3) mg/dL Total Bilirubin 1.6 H (0.2-1.0) mg/dL AST 51 H (10-42) IU/L ALT 56 (10-60) IU/L Alkaline Phosphatase 153 H (42-121) IU/L Total Protein 7.3 (6.7-8.2) g/dL Albumin 4.0 (3.2-5.5) g/dL Globulin 3.3 (2.1-4.2) g/dL Albumin/Globulin Ratio 1.2 (1.0-2.2) Lipase 24 (22-51) U/L Urine Color Urine Clarity (CLEAR) Urine pH (5.0-7.5) PH Ur Specific [place] (1.002-1.030) Urine Protein (NEGATIVE) mg/dL Urine Glucose (UA) (NEGATIVE) mg/dL Urine Ketones (NEGATIVE) mg/dL Urine Occult Blood (NEGATIVE) Urine Nitrite (NEGATIVE) Urine Bilirubin (NEGATIVE) Urine Urobilinogen (NORMAL) E.U./dL Ur Leukocyte Esterase (NEGATIVE) Urine RBC (0-5) /HPF Urine WBC (0-5) /HPF Ur Squamous Epith Cells (<= Few) Urine Bacteria (None Seen) /HPF Ur Microscopic Review Urine Culture Comments Assessment/Plan - Problem List (1) Sigmoid diverticulitis Impression: Sigmoid diverticulitis Conclusion/Plan: Sigmoid Diverticulitis slowly clinically improving, afebrile, leukocytosis improved, hemodynamically stable still not ready to advance diet, still nauseated continue IV levoflox/ flagyl continue IVF reevaluate later today if can advance to clears, if continues improved in am, may be able to d/c on PO ABX 04/04 440 pm; still some nausea; continue with clear, IF still w/ nausea in am, FLagyl is often culprit, can consider amp/sulbactam, and COulD try Augmentin by time ready for discharge (if GI intolerance to flagyl) ; 04/02 confirmed on imaging/uncomplicated/ no pneumoperitoneum no abscess -Continue antibiotics, but change to levofloxacin/ flagyl -IV hydration - clear liquids for now - serial exams Leukocytosis likley related to same/ recheck in am/ expect improvement After d/c consider outpatiient surgical consultation since has had before (2) Leukocytosis Conclusion/Plan: due to primary infection/ improving with antibiotics recheck in am (3) Nausea & vomiting Conclusion/Plan: as per #1 ,At this point Given that she has tolerated augmentin in past, I suspect more likely the N/v is related tothe primary infection (and had progressed to the point of assoicated N/V ~ time she got her 1st dose Augmentin) and as above, will consider whether flagyl is culprit prn Zofran prn prochlorperazine (4) Elevated bilirubin, mild transaminitis, mild alk phos elevation Conclusion/Plan: Normal Gallbladder and ducts on CT, no RUQ tenderness, likley related to primary GI process, could conceivably have had transient c holedocholithiaisis, but all values near normal Presentation and CT findings most c/w only sigmoid diverticulitis (5) Venous thromboembolism (VTE) prophylaxis provided within 24 hours of arrival Conclusion/Plan: VTE prophylaxis Lovenox 40 mg/ day
[2018-04-03] MEDS ORDERED: PROCHLORPERAZINE INJ 10 MG in SODIUM CHLORIDE 0.9% 50 ML IV PRN (15:43)
[2018-04-03] MEDS: PROCHLORPERAZINE 10 MG/2 ML VIAL IVP PRN ×2 (15:54→22:49)
[2018-04-03] MEDS ORDERED: levoFLOXacin 750 MG/150 ML 750 MG/150 ML BAG IV SCH (18:00)
[2018-04-04 06:04] LABS: HGB - HEMOGLOBIN 13.4 g/dL (12.0-16.0); MEAN CORPUSCULAR HEMOGLOBIN 33.3 pg (27.0-31.0); MEAN CORPUSCULAR HGB CONC 33.9 g/dL (32.0-36.0); MEAN CORPUSCULAR VOLUME 98.3 fL (81.0-99.0); MEAN PLATELET VOLUME 8.2 fL (7.9-10.8); RED BLOOD COUNT 4.02 10^6/uL (4.20-5.40); RED CELL DISTRIBUTION WIDTH 14.1 % (12.0-15.0); WHITE BLOOD COUNT 9.8 x10^3/uL (4.8-10.8)
[2018-04-04] MEDS ORDERED: traMADol 50 MG TABLET PO PRN (06:33)
[2018-04-04] MEDS: metroNIDAZOLE 500 MG/100 ML 500 MG/100 ML BAG IV SCH (06:37)
[2018-04-04 07:17] LABS: HGB - HEMOGLOBIN 13.2 g/dL (12.0-16.0); MEAN CORPUSCULAR HEMOGLOBIN 32.8 pg (27.0-31.0); MEAN CORPUSCULAR HGB CONC 33.3 g/dL (32.0-36.0); MEAN CORPUSCULAR VOLUME 98.4 fL (81.0-99.0); MEAN PLATELET VOLUME 7.9 fL (7.9-10.8); RED BLOOD COUNT 4.04 10^6/uL (4.20-5.40); RED CELL DISTRIBUTION WIDTH 14.4 % (12.0-15.0); WHITE BLOOD COUNT 9.7 x10^3/uL (4.8-10.8)
[2018-04-04 07:37] LABS: ALBUMIN 3.4 g/dL (3.2-5.5); ALBUMIN/GLOBULIN RATIO 1.1 (1.0-2.2); BILIRUBIN,TOTAL 0.9 mg/dL (0.2-1.0); CALCIUM 8.7 mg/dL (8.5-10.3); CREATININE 0.9 mg/dL (0.4-1.0); TOTAL PROTEIN 6.5 g/dL (6.7-8.2)
[2018-04-04 07:44] VITALS: BP 165/91
[2018-04-04] MEDS: POLYETHYLENE GLYCOL 3350 17 GM PACKET PO SCH (08:42)
[2018-04-04] MEDS: ENOXAPARIN 40 MG/0.4 ML SYRINGE SUBQ SCH (08:44)
[2018-04-04] MEDS: SODIUM CHLORIDE FLUSH 0.9% 10 ML SYRINGE IVP SCH (08:48)
[2018-04-04] MEDS ORDERED: PREGABALIN 25 MG CAPSULE PO SCH (09:00)
--- NOTE | 2018-04-04 10:59 | Discharge Plan ---
Discharge Plan Disposition: 01 Home, Self Care Condition: Stable Prescriptions: Ondansetron [Ondansetron Odt] 4 mg PO Q6H PRN #10 tab.rapdis PRN Reason: Nausea / Vomiting Diet: Soft Activity Restrictions: No Restrictions Shower Restrictions: No Driving Restrictions: No Assistance Devices: Other (none) Additional Instructions or Follow Up instructions: Diverticulitis You presented with symptoms of diverticulitis (abdominal pain, nausea, vomiting, elevated white blood cell count), and CT scan of abdomen showed inflammation of the sigmoid colon (" a long segment of inflamed sigmoid colon) (typical of diverticulitis) no abscess, no evidence of perforation You had no significant fever and your vital signs were stable (no signs of sepsis) Since you have had Augmentin before with no problem of nausea/ vomiting, those symptoms were likely due to the primary GI sigmoid inflammation You started levofloxacin / flagyl and over 2 days your white count and pain improved, you were able to advance your diet by today You had barely gotten a start on the Augmentin before coming in You can complete that course of (should be Augmentin 875 mg twice ruben that was ordered by HV[employer] SERVICE TECHNICIAN Jorge A In case you do vomit that (unlikely, you have paper prescriptions for Levofloxacin 750 mg, and flagyl 500 mg every 8 hrs) 7 more days If needed you can fill the zofran prescription (4 mg every 6 hrs if needed for nausea) Stay on full liquids until your abdominal pain is completely gone Drink plenty of liquids You need a surgical consultation to consider removal of that section of your colon (sigmoid) / to avoid repeat diverticulitis No Smoking: If you smoke, Please STOP! Call for help. Follow-up with: Rosalia Jules ARNP [Primary Care Provider] - 1 Week (Recommend outpatient surgical consultation as Ms Flores has had diverticulitis numerous x)
[2018-04-04] MEDS ORDERED: AMOX/CLAV 875 MG/125 MG TABLET PO SCH (12:00)
--- NOTE | 2018-04-04 12:08 | DISCHARGE SUMMARY ---
Discharge Summary Admit Date: 04/02/18 Discharge Date: 04/04/18 Discharging Provider: KORY Minor Code Status: Attempt Resuscitation Condition at Discharge: Stable Discharge Disposition: 01 Home, Self Care - DIAGNOSES Admission Diagnoses: Sigmoid Diverticulitis;improving Leukocytosis; resolved Nausea and Vomiting; resolved Elevated bilirubin and transaminases/ (mild; resolved Discharge Diagnoses with Status of Each Condition: 1)Diverticulitis; After 2 days of conservative management with IVF, levofloxacin, and flagyl; clinically improving with reduced pain, leukocytosis resolved, and tolerating diet advance It is not suspected that the presenting nausea/ vomiting was due to the Augmentin (which she has tolerated in the past); She can complete her course of Augmentin previously prescribed, BUt in the unlikey event she does have nausea/vomiting after Augmentin, she has written Rx for 7 days levofloxacin/ flagyl to fill (only if does not tolerate Augmentin) She needs an outpatient surgical consultation for consideration of sigmoid resection at this point 2)Leukocytosis; related to primary infection; resolved with antibiotic treatment (18K>>11K>>9.8K) 3)Nausea / vomiting; Initially this was attributed to the Augmentin, but more likely her Diverticulitis had progressed to the point of causing nausea/ vomiting (which coincidentally was ~ concomittant with her getting her first dose of Augmentin Tolerating PO at discharge Does have Rx for small number PO zofran - HPI History of Present Illness: 67 year old female with known diverticulosis, and history of diverticulitis "at least 10 x per patient" presented with nausea vomiting after starting Augmentin as outpatient for presumed Diverticulitis. She has known divericulitis with prior hx of diverticulisits, ("~ 10x per patient"). Usually managed at home as outpatient with clear liquids, antibiotics, and advance diet as tolerated. She has had a colonoscopy ~ 4 yrs ago. Never has had a surgical consultation re; possible sigmoid resection. She developed LLQ abdominal pain 03/31 (Sunday) typical of her diverticulitis. Did feel chilled but did not check temperature, , No nausea/ vomiting at that time. No dysuria, no diarrahea, had a soft BM. No blood , no mucus Saw PCP and was prescribed Augmentin for presumed diverticulitis . No imaging or labs drawn at that time, Subsequesnt to starting Augmentin she has developed intractible vomiting, (but didnt get the first dose of Augmentin til late in day after filling the prescription/ she of note also had a dose of vicodin) She HAS taken Augmentin in past for diverticulitis, NOT with SE of nausea/vomiting In ED , hemodynamically stable, with leukocytosis 18K, no bands, Exam notable for LLQ fairly localized tenderness, CT abdomen consistent with sigmoid diverticulitis; with sigmoid inflammation, small paraesophageal hernia., , no ductal dilatation, ducts, GB normal on imaging ED started levofloxacin / Flagyl, and IV fluid. - CONSULTS | PROCEDURES Consultations: none Procedures: none - HOSPITAL COURSE Hospital Course: See above - ALLERGIES Allergies/Adverse Reactions: Allergies Allergy/AdvReac Type Severity Reaction Status Date / Time No Known Drug Allergies Allergy Verified 06/27/14 08:37 - MEDICATIONS Home Medications: Ambulatory Orders Medication Instructions Recorded Confirmed Fiber Gummy 1 ea PO DAILY 04/02/18 04/02/18 Ibuprofen 200 mg PO Q8H PRN 04/02/18 04/02/18 Ondansetron [Ondansetron Odt] 4 mg PO Q6H PRN #10 tab.rapdis 04/04/18 Polyethylene Glycol 3350 [Miralax] 17 gm PO DAILY packet 04/04/18 - PHYSICAL EXAM AT DISCHARGE General Appearance: positive: No acute distress, Alert, Other (more animated today, was eager to advance to full liquids with yogourt and ceam of wheat) Eyes Bilateral: positive: Normal inspection Respiratory: positive: No respiratory distress, Breath sounds nml (clear x faint bibasilar early inspiratory crackles) Cardiovascular: positive: Regular rate & rhythm, No murmur Abdomen: positive: Nml bowel sounds, No distention, Tenderness (soft, still some tenderness LLQ but only with very deep palpation in a very localized area, no rebound, no guarding ) Skin: positive: Warm, Dry Extremities: negative: Pedal edema Neurologic/Psychiatric: positive: Oriented x3, Mood/affect nml - LABS Result Diagrams: 04/04/18 07:11 04/04/18 07:11 Other Lab Results: WBC improved from 18K (no bands)>>> 11.6K 04/03>> 9.8 K on 04/04 - DIAGNOSTIC IMAGING Diagnostic Imaging Results Comments: CT abdomen; 04/02/2018 Small paraesophageal hernia, Dependent atelectasis Gallbladder / bile ducts unremarkable Sigmoid Diverticulitis Long segment of inflamed sigmoid colon with moderate wall thickening, and moderate adjacent fat change. NO pneumoperitoneum, no mass, no abscess, small volume ascites. - TIME SPENT Time Spent in Discharge (Minutes): 40
[2018-04-05] MEDS ORDERED: POTASSIUM CHLORIDE 20 MEQ TABLET PO SCH (08:00)
== END 2018-04-04 12:15 | disposition home or self-care (01) ==
LOC: ED 12:58 → INTOOBSV 15:40 → MS2 15:40
PROVIDERS: ADMIT Nurse Practitioner; ATTEND Nurse Practitioner
DX: K57.32 Diverticulitis of large intestine without perforation or abscess without bleeding (principal); G89.29 Other chronic pain; M54.9 Dorsalgia, unspecified; F41.9 Anxiety disorder, unspecified; K44.9 Diaphragmatic hernia without obstruction or gangrene; Z79.1 Long term (current) use of non-steroidal anti-inflammatories (NSAID); Z79.891 Long term (current) use of opiate analgesic; Z79.2 Long term (current) use of antibiotics; Z72.89 Other problems related to lifestyle
CPT/HCPCS: 36415; 74177; 80053; 81001; 83690; 85025; 85027; 96365; 96375; 99283; 99284; A9270; G0378; J1170; J1650; J2765; J7040; Q9967; 81003; 87086

== ENCOUNTER 2019-07-04 14:14 | Emergency (ER) | payer MEDICARE ==
[2019-07-04] MEDS ORDERED: TETANUS/DIPHTHERIA/PERTUSSIS 0.5 ML SYRINGE IM ONE (14:35)
[2019-07-04] MEDS ORDERED: ERYTHROMYCIN OPHTH OINT 1 GM TUBE RIGHTEYE STA (14:35)
--- NOTE | 2019-07-04 14:37 | ED Physician Documentation ---
PD HPI OPHTHO - Stated complaint Stated Complaint: RT EYE LAC - Chief complaint Chief Complaint: Heent - History obtained from History obtained from: Patient (She was gardening at home, a piece of wire came up and struck her in the right eye. No other injuries. Tetanus is unknown. Initially she said her vision was affected but after the administration of proparacaine her vision seemed more normal to her.) Review of Systems Constitutional: denies: Fever, Chills Ears: denies: Loss of hearing, Ear pain, Drainage/discharge Nose: denies: Rhinorrhea / runny nose PD PAST MEDICAL HISTORY - Past Medical History Cardiovascular: None Respiratory: None Neuro: None Endocrine/Autoimmune: None GI: Diverticulitis : None HEENT: None Psych: Anxiety (smokes pot daily as "management") Musculoskeletal: Chronic back pain (smokes marijuana, also uses heating pad) Derm: Eczema - Past Surgical History Past Surgical History: Yes General: Colonoscopy (had colonoscopy ~ 4 yrs ago) Ortho: Arthroscopic surgery, Carpal Tunnel surgery, Spine surgery - Present Medications Home Medications: Ambulatory Orders Medication Instructions Recorded Confirmed Fiber Gummy 1 ea PO DAILY 04/02/18 04/02/18 Erythromycin Base [Erythromycin 1 appful OP 5XD 7 Days #1 oint...g. 07/04/19 Ophthalmic Ointment] - Allergies Allergies/Adverse Reactions: Allergies Allergy/AdvReac Type Severity Reaction Status Date / Time Sulfa (Sulfonamide Allergy Hives Verified 07/04/19 14:20 Antibiotics) - Social History Does the pt smoke?: No Smoking Status: Never smoker Does the pt drink ETOH?: Yes Does the pt have substance abuse?: Yes - Immunizations Immunizations are current?: Yes - POLST Patient has POLST: No POLST Status: Full Code (discussed with patient) PD ED PE NORMAL - Vitals Vital signs reviewed: Yes - General General: Alert and oriented X 3, No acute distress - HEENT HEENT: Other (There is a large scleral abrasion on the superomedial side of the cornea. There is just a little bit of the cornea involved there. There is no afferent pupillary defect. No cell or flare. Fluorescein examination shows expected uptake but negative Can sign.) - Neck Neck: Supple, no meningeal sign, No bony TTP Results - Vitals Vitals: Vital Signs - 24 hr 07/04/19 14:18 Temperature 36.5 C Heart Rate 73 Respiratory 18 Rate Blood Pressure 162/99 H O2 Saturation 97 Oxygen O2 Source Room air Departure - Departure Disposition: 01 Home, Self Care Clinical Impression: Abrasion of sclera of right eye Qualifiers: Encounter type: initial encounter Qualified Code(s): S05.8X1A - Other injuries of right eye and orbit, initial encounter Condition: Good Record reviewed to determine appropriate education?: Yes Instructions: ED Eye Injury Corneal Abrasion Follow-Up: Ed Gutierrez MD [Provider Admit Priv/Credential] - Prescriptions: Erythromycin Base [Erythromycin Ophthalmic Ointment] 1 appful OP 5XD 7 Days #1 oint...g. Comments: As discussed, I think this will heal up just fine with conservative treatment and topical antibiotics. Return if worse. Follow-up with the eye doctor on Sunday if not better. Note for your records that you did receive a tetanus/diphtheria/pertussis vaccination today which is good for 10 years unless you have a particularly dirty wound.
[2019-07-04 14:52] VITALS: BP 160/82
== END 2019-07-04 14:52 | disposition home or self-care (01) ==
LOC: ED 14:14
DX: S05.01XA Injury of conjunctiva and corneal abrasion without foreign body, right eye, initial encounter (principal); W20.8XXA Other cause of strike by thrown, projected or falling object, initial encounter; Y93.H2 Activity, gardening and landscaping
CPT/HCPCS: 90471; 90715; 99283; J3490

== ENCOUNTER 2019-11-17 11:13 | Outpatient (CLI) | payer MEDICARE | END 2019-11-17 11:14 | disposition home or self-care (01) | LOC: COV 11:13 | PROVIDERS: ATTEND Family Medicine | DX: R05 Cough (principal); R19.7 Diarrhea, unspecified; Z20.828 Contact with and (suspected) exposure to other viral communicable diseases ==

== ENCOUNTER 2020-04-23 15:09 | Outpatient (CLI) | payer MEDICARE ==
[2020-04-23 20:06] LABS: BASOPHILS % (AUTO) 0.4 %; EOSINOPHILS # (AUTO) 0.3 10^3/uL (0.0-0.7); EOSINOPHILS % (AUTO) 3.1 %; GLUCOSE, URINE (UA) NEGATIVE (NEGATIVE); HCT - HEMATOCRIT 42.6 % (37.0-47.0); HGB - HEMOGLOBIN 14.1 g/dL (12.0-16.0); KETONES,URINE (UA) 15 mg/dL (NEGATIVE); LEUKOCYTE ESTERASE, URINE NEGATIVE (NEGATIVE); LYMPHOCYTES # (AUTO) 2.3 10^3/uL (1.5-3.5); LYMPHOCYTES % (AUTO) 25.2 %; MEAN CORPUSCULAR HEMOGLOBIN 33.7 pg (27.0-31.0); MEAN CORPUSCULAR HGB CONC 33.1 g/dL (32.0-36.0); MEAN CORPUSCULAR VOLUME 101.7 fL (81.0-99.0); MEAN PLATELET VOLUME 10.5 fL (7.9-10.8); MONOCYTES # (AUTO) 0.6 10^3/uL (0.0-1.0); MONOCYTES % (AUTO) 6.5 %; NEUTROPHILS # (AUTO) 5.7 10^3/uL (1.5-6.6); NEUTROPHILS % (AUTO) 64.5 %; NITRITE,URINE NEGATIVE (NEGATIVE); OCCULT BLOOD,URINE NEGATIVE (NEGATIVE); PLT - PLATELET COUNT 376 10^3/uL (130-450); PROTEIN,URINE NEGATIVE (NEGATIVE); RED BLOOD COUNT 4.19 10^6/uL (4.20-5.40); RED CELL DISTRIBUTION WIDTH 13.6 % (12.0-15.0); UROBILINOGEN,URINE 0.2 (NORMAL) E.U./dL (NORMAL); WHITE BLOOD COUNT 8.9 x10^3/uL (4.8-10.8)
[2020-04-23 20:12] LABS: BILIRUBIN,URINE NEGATIVE (NEGATIVE); CLARITY,URINE CLOUDY (CLEAR); ICTOTEST,URINE NEGATIVE
[2020-04-23 20:13] LABS: AMORPHOUS SEDIMENT,UR Marked /LPF; BACTERIA,URINE Many /HPF (None Seen); RBC,URINE 0-5 /HPF (0-5); SQUAMOUS EPITHELIAL CELL,UR FEW Squamous (<= Few); WBC,URINE 0-3 /HPF (0-5)
[2020-04-23 20:20] LABS: ALBUMIN 4.4 g/dL (3.2-5.5); ALBUMIN/GLOBULIN RATIO 1.6 (1.0-2.2); BILIRUBIN,TOTAL 0.9 mg/dL (0.2-1.0); CALCIUM 9.3 mg/dL (8.5-10.3); CREATININE 1.1 mg/dL (0.4-1.0); POTASSIUM 4.1 mmol/L (3.5-5.0); TOTAL PROTEIN 7.1 g/dL (6.7-8.2)
== END 2020-04-23 23:59 | disposition home or self-care (01) ==
LOC: LAB.S 15:09
PROVIDERS: ATTEND Emergency Medicine
DX: R10.32 Left lower quadrant pain (principal)
CPT/HCPCS: 36415; 80053; 81001; 83690; 85025; 87086

== ENCOUNTER 2021-05-09 10:25 | Outpatient (CLI) | payer MEDICARE ==
--- NOTE | 2021-05-09 11:45 | XRAY Report ---
PROCEDURE: Knee 2 View RT INDICATIONS: KNEE JOINT PAIN, RIGHT TECHNIQUE: 2 views of the right knee(s) were acquired. COMPARISON: None. FINDINGS: Bones: No fractures or dislocations. No suspicious bony lesions. There is moderate tricompartmenta l periarticular osteophyte formation. Soft tissues: No joint effusion. No suspicious soft tissue calcifications. IMPRESSION: Osteoarthritis. No acute fracture. No osseous lesion. If symptoms and/or clinical suspic ion for pathology continue, further assessment with repeat plain films, or advanced imaging (e.g., CT , MRI, or bone scan) is recommended for further assessment. Reviewed by: Erin Augustin MD on 05/09/2021 11:44 AM PDT Approved by: Erin Augustin MD on 05/09/2021 11:44 AM PDT Station ID: [id number]
[2021-05-09 14:22] LABS: BASOPHILS % (AUTO) 0.3 %; EOSINOPHILS # (AUTO) 0.3 10^3/uL (0.0-0.7); EOSINOPHILS % (AUTO) 4.4 %; HCT - HEMATOCRIT 44.4 % (37.0-47.0); HGB - HEMOGLOBIN 14.9 g/dL (12.0-16.0); LYMPHOCYTES % (AUTO) 34.1 %; MEAN CORPUSCULAR HGB CONC 33.6 g/dL (32.0-36.0); MEAN CORPUSCULAR VOLUME 92.3 fL (81.0-99.0); MEAN PLATELET VOLUME 11.1 fL (7.9-10.8); MONOCYTES # (AUTO) 0.5 10^3/uL (0.0-1.0); PLT - PLATELET COUNT 303 10^3/uL (130-450); RED BLOOD COUNT 4.81 10^6/uL (4.20-5.40); RED CELL DISTRIBUTION WIDTH 13.4 % (12.0-15.0); WHITE BLOOD COUNT 5.7 x10^3/uL (4.8-10.8)
[2021-05-09 14:37] LABS: ALBUMIN 4.1 g/dL (3.2-5.5); ALBUMIN/GLOBULIN RATIO 1.5 (1.0-2.2); ALKALINE PHOSPHATASE 85 IU/L (42-121); ALT ALANINE AMINOTRANSFERASE 27 IU/L (10-60); AST ASPARTATE AMINOTRANSFERASE 24 IU/L (10-42); BILIRUBIN,TOTAL 1.1 mg/dL (0.2-1.0); BUN - BLOOD UREA NITROGEN 23 mg/dL (6-20); CALCIUM 9.3 mg/dL (8.5-10.3); CARBON DIOXIDE - CO2 25 mmol/L (21-32); CHLORIDE 103 mmol/L (101-111); CHOL/HDL RATIO 3.4 (<4.4); CHOLESTEROL 225 mg/dL; CREATININE 1.1 mg/dL (0.4-1.0); GFR - MDRD 49 (>89); GLUCOSE 99 mg/dL (70-100); HDL CHOLESTEROL 67 mg/dL; LDL CHOLESTEROL,CALCULATED 145 mg/dL; LDL/HDL RATIO 2.2 (<4.4); POTASSIUM 3.8 mmol/L (3.5-5.0); SODIUM 138 mmol/L (135-145); TOTAL PROTEIN 6.9 g/dL (6.7-8.2); TRIGLYCERIDES 65 mg/dL; VLDL CHOLESTEROL 13 mg/dL
[2021-05-09 14:48] LABS: THYROID STIMULATING HORMONE 2.55 uIU/mL (0.34-5.60)
[2021-05-10 09:31] LABS: HEPATITIS C ANTIBODY NON-REACTIVE (NON-REACTIVE)
[2021-05-10 12:56] LABS: HIV AG/AB 4TH GEN NON-REACTIVE (NON-REACTIVE)
== END 2021-05-09 10:26 | disposition home or self-care (01) ==
LOC: DI.S 10:25
PROVIDERS: ATTEND Registered Nurse
DX: M17.11 Unilateral primary osteoarthritis, right knee (principal); Z13.228 Encounter for screening for other metabolic disorders; Z13.220 Encounter for screening for lipoid disorders; Z13.0 Encounter for screening for diseases of the blood and blood-forming organs and certain disorders involving the immune mechanism; Z11.4 Encounter for screening for human immunodeficiency virus [HIV]; Z11.59 Encounter for screening for other viral diseases
CPT/HCPCS: 36415; 73560; 80053; 80061; 84443; 85025; 86803; G0475; 83721; 87389

== ENCOUNTER 2021-06-29 09:45 | Outpatient (CLI) | payer MEDICARE ==
--- NOTE | 2021-06-29 13:40 | Mammography Report ---
BILATERAL DIGITAL SCREENING MAMMOGRAM 3D/2D WITH EXAGGERATED CC: 06/29/2021 CLINICAL: Routine screening. Family history of breast cancer. Comparison is made to exams dated: 03/02/2016 mammogram, 07/22/2014 mammogram, and 03/14/2013 mammogram - [facility]. There are scattered fibroglandular elements in both breasts. No significant masses, calcifications, or other findings are seen in either breast. There has been no significant interval change. IMPRESSION: NEGATIVE There is no mammographic evidence of malignancy. A 1 year screening mammogram is recommended. This exam was interpreted at Station ID: [id number]. NOTE: For mammograms, a report in lay terms will be sent to the patient. Approximately 15% of breast malignancies will not be visualized mammographically. In the management of a palpable breast mass, a negative mammogram must not discourage biopsy of a clinically suspicious lesion. Electronically Signed By: Carlos Manuel Lord M.D. slc/penrad:06/29/2021 12:03:11 ACR BI-RADS Category 1: Negative 3341F PARENCHYMAL PATTERN: (A) - The breast(s) demonstrate(s) scattered fibroglandular densities. BI-RADS CATEGORY: (1) - 1 RECOMMENDATION: (ANNUAL) - Recommend routine annual screening mammography. [id number] 1 year screening LATERALITY: (B)
== END 2021-06-29 09:46 | disposition home or self-care (01) ==
LOC: DI.S 09:45
PROVIDERS: ATTEND Registered Nurse
DX: Z12.31 Encounter for screening mammogram for malignant neoplasm of breast (principal); Z80.3 Family history of malignant neoplasm of breast

== ENCOUNTER 2022-07-06 10:13 | Outpatient (CLI) | payer MEDICARE ==
--- NOTE | 2022-07-07 09:33 | Mammography Report ---
BILATERAL DIGITAL SCREENING MAMMOGRAM 3D/2D WITH EXAGGERATED CC: 07/06/2022 CLINICAL: Routine screening. Family history of breast cancer. Comparison is made to exams dated: 06/29/2021 mammogram, 03/02/2016 mammogram, and 07/22/2014 mammogram - [facility]. There are scattered areas of fibroglandular density in both breasts (category b / 25%-50% glandular t issue). No significant masses, calcifications, or other findings are seen in either breast. There has been no significant interval change. IMPRESSION: NEGATIVE There is no mammographic evidence of malignancy. A 1 year screening mammogram is recommended. Based on the Tyrer Cuzick model (a risk assessment model) the patients lifetime risk is 4.3% and her 10 year risk is 2.5%. According to the ACR, ACS, and NCCN guidelines, an annual breast MRI exam carlton g with mammogram is recommended if the patients lifetime risk is 20% or greater. This exam was interpreted at Station ID: [id number]. NOTE: For mammograms, a report in lay terms will be sent to the patient. Approximately 15% of breast malignancies will not be visualized mammographically. In the management of a palpable breast mass, a negative mammogram must not discourage biopsy of a clinically suspicious lesion. Electronically Signed By: Carlos Manuel lyon/debra:07/06/2022 11:12:40 letter sent: No_Letter ACR BI-RADS Category 1: Negative 3341F PARENCHYMAL PATTERN: (A) - The breast(s) demonstrate(s) scattered fibroglandular densities. BI-RADS CATEGORY: (1) - 1 Mammogram [id number] 1 year screening LATERALITY: (B)
== END 2022-07-06 10:14 | disposition home or self-care (01) ==
LOC: DI.S 10:13
DX: Z12.31 Encounter for screening mammogram for malignant neoplasm of breast (principal); Z80.3 Family history of malignant neoplasm of breast

== ENCOUNTER 2022-07-28 09:11 | Outpatient (CLI) | payer MEDICARE ==
[2022-07-28 14:26] LABS: BASOPHILS % (AUTO) 0.7 %; EOSINOPHILS # (AUTO) 0.5 10^3/uL (0.0-0.7); EOSINOPHILS % (AUTO) 8.1 %; HCT - HEMATOCRIT 43.1 % (37.0-47.0); HGB - HEMOGLOBIN 14.3 g/dL (12.0-16.0); LYMPHOCYTES # (AUTO) 2.4 10^3/uL (1.5-3.5); LYMPHOCYTES % (AUTO) 39.8 %; MEAN CORPUSCULAR HEMOGLOBIN 31.4 pg (27.0-31.0); MEAN CORPUSCULAR HGB CONC 33.2 g/dL (32.0-36.0); MEAN CORPUSCULAR VOLUME 94.5 fL (81.0-99.0); MEAN PLATELET VOLUME 10.7 fL (7.9-10.8); MONOCYTES # (AUTO) 0.4 10^3/uL (0.0-1.0); MONOCYTES % (AUTO) 6.6 %; NEUTROPHILS # (AUTO) 2.7 10^3/uL (1.5-6.6); NEUTROPHILS % (AUTO) 44.5 %; PLT - PLATELET COUNT 342 10^3/uL (130-450); RED BLOOD COUNT 4.56 10^6/uL (4.20-5.40); RED CELL DISTRIBUTION WIDTH 14.6 % (12.0-15.0); WHITE BLOOD COUNT 6.1 x10^3/uL (4.8-10.8)
[2022-07-28 14:46] LABS: ALBUMIN 4.1 g/dL (3.2-5.5); ALBUMIN/GLOBULIN RATIO 1.6 (1.0-2.2); ALKALINE PHOSPHATASE 83 IU/L (42-121); ALT ALANINE AMINOTRANSFERASE 18 IU/L (10-60); AST ASPARTATE AMINOTRANSFERASE 16 IU/L (10-42); BILIRUBIN,TOTAL 0.7 mg/dL (0.2-1.0); BUN - BLOOD UREA NITROGEN 28 mg/dL (6-20); CALCIUM 8.9 mg/dL (8.5-10.3); CARBON DIOXIDE - CO2 25 mmol/L (21-32); CHLORIDE 109 mmol/L (101-111); CHOL/HDL RATIO 2.6 (<4.4); CHOLESTEROL 185 mg/dL; GFR - MDRD 55 (>89); GLUCOSE 99 mg/dL (70-100); HDL CHOLESTEROL 70 mg/dL; LDL CHOLESTEROL,CALCULATED 103 mg/dL; LDL/HDL RATIO 1.5 (<4.4); POTASSIUM 3.8 mmol/L (3.5-5.0); SODIUM 140 mmol/L (135-145); TOTAL PROTEIN 6.6 g/dL (6.7-8.2); TRIGLYCERIDES 59 mg/dL; VLDL CHOLESTEROL 12 mg/dL
[2022-07-28 15:10] LABS: THYROID STIMULATING HORMONE 1.86 uIU/mL (0.34-5.60)
== END 2022-07-28 09:12 | disposition home or self-care (01) ==
LOC: LAB.S 09:11
PROVIDERS: ATTEND Registered Nurse
DX: I10 Essential (primary) hypertension (principal); Z13.220 Encounter for screening for lipoid disorders; Z79.899 Other long term (current) drug therapy
CPT/HCPCS: 36415; 80053; 80061; 83721; 84443; 85025

== ENCOUNTER 2022-08-17 08:13 | Outpatient (CLI) | payer MEDICARE ==
[2022-08-17] MEDS ORDERED: iohexoL-300 100 ML VIAL ONE (08:25)
[2022-08-17] MEDS ORDERED: DIATRIZOATE MEGLU/DIATRIZO SOD 30 ML BOTTLE PO ONE (13:25)
[2022-08-17] MEDS ORDERED: iohexoL-300 100 ML VIAL IVP ONE (13:26)
--- NOTE | 2022-08-17 16:44 | CT Report ---
PROCEDURE: CT abdomen pelvis with contrast INDICATIONS: 71-year-old female with lower abdominal pain x2 weeks and history of diverticulitis CONTRAST: 100ml Omnipaque 300 TECHNIQUE: After the administration of contrast, 5 mm thick sections acquired from the diaphragms to the symphys is. 5 mm thick coronal and sagittal reformats were acquired. For radiation dose reduction, the foll owing was used: automated exposure control, adjustment of mA and/or kV according to patient size. COMPARISON: 04/02/2018 FINDINGS: Image quality: Excellent. Lung bases and heart: Unremarkable. Liver: No solid mass. Gallbladder and biliary tree: Spleen: No splenomegaly. Pancreas: No pancreatic ductal dilation. Adrenals: No adrenal nodule. Kidneys and ureters: No hydronephrosis. No renal cystic lesion which requires follow up. No solid mas s. Bowel and peritoneum: In the proximal sigmoid colon, there is mild pericolonic inflammatory change wi thout evidence of free air or abscess. Multiple diverticuli impression the descending and sigmoid col on as well. No obstruction. Lymph nodes: No central or retroperitoneal adenopathy. Vessels: No infrarenal aortic aneurysm. PELVIS Reproductive organs: Unremarkable. Bladder: No abnormal wall thickening, accounting for underdistension. Pelvic lymph nodes: No pelvic adenopathy by size criteria. Bones: No aggressive osseous abnormality. Multilevel degenerative disc disease and arthropathy noted in the lumbar spine Other: No significant ventral or inguinal hernia. IMPRESSION: Mild uncomplicated sigmoid diverticulitis. No evidence of free air, abscess or obstruction. Reviewed by: Harrison Amador MD on 08/17/2022 3:43 PM AKDT Approved by: Harrison Amador MD on 08/17/2022 3:43 PM AKDT Station ID: [id number]
== END 2022-08-17 08:14 | disposition home or self-care (01) ==
LOC: DI 08:13
PROVIDERS: ATTEND Emergency Medicine
DX: K57.32 Diverticulitis of large intestine without perforation or abscess without bleeding (principal)
CPT/HCPCS: 74177; Q9963; Q9967

== ENCOUNTER 2023-06-18 12:52 | Outpatient (CLI) | payer MEDICARE ==
--- NOTE | 2023-06-19 08:36 | XRAY Report ---
PROCEDURE: Hip w/Pelvis 2-3V RT INDICATIONS: RIGHT HIP PAIN TECHNIQUE: 2 views of the hip were acquired. COMPARISON: None. FINDINGS: Bones: No fractures or dislocations. No suspicious bony lesions. Mild degenerative joint disease in hips and sacroiliac joints bilaterally. Moderate degenerative disc and facet disease in the lower kirt mbar spine. Soft tissues: No suspicious soft tissue calcifications or masses. IMPRESSION: 1. No acute bony abnormality. 2. Mild degenerative joint disease. 2. Moderate degenerative disc and facet disease in the lower lumbar spine. Reviewed by: Chiquis Corley MD on 06/19/2023 8:34 AM PDT Approved by: Chiquis Corley MD on 06/19/2023 8:34 AM PDT Station ID: [id number]
== END 2023-06-18 12:53 | disposition home or self-care (01) ==
LOC: DI.S 12:52
PROVIDERS: ATTEND Orthopaedic Surgery
DX: M16.11 Unilateral primary osteoarthritis, right hip (principal); M47.816 Spondylosis without myelopathy or radiculopathy, lumbar region; M51.36 Other intervertebral disc degeneration, lumbar region

== ENCOUNTER 2023-06-29 09:29 | Outpatient (CLI) | payer MEDICARE ==
[2023-06-29 15:11] LABS: BASOPHILS % (AUTO) 0.6 %; EOSINOPHILS # (AUTO) 0.4 10^3/uL (0.0-0.7); EOSINOPHILS % (AUTO) 6.1 %; HCT - HEMATOCRIT 41.9 % (37.0-47.0); HGB - HEMOGLOBIN 13.7 g/dL (12.0-16.0); LYMPHOCYTES # (AUTO) 1.5 10^3/uL (1.5-3.5); MEAN CORPUSCULAR HEMOGLOBIN 31.9 pg (27.0-31.0); MEAN CORPUSCULAR HGB CONC 32.7 g/dL (32.0-36.0); MEAN CORPUSCULAR VOLUME 97.4 fL (81.0-99.0); MEAN PLATELET VOLUME 10.8 fL (7.9-10.8); MONOCYTES # (AUTO) 0.5 10^3/uL (0.0-1.0); MONOCYTES % (AUTO) 7.2 %; NEUTROPHILS # (AUTO) 4.1 10^3/uL (1.5-6.6); NEUTROPHILS % (AUTO) 62.8 %; PLT - PLATELET COUNT 336 10^3/uL (130-450); RED CELL DISTRIBUTION WIDTH 14.5 % (12.0-15.0); WHITE BLOOD COUNT 6.6 x10^3/uL (4.8-10.8)
[2023-06-29 16:04] LABS: % IRON SATURATION 41 % (20-50); CHOL/HDL RATIO 2.8 (<4.4); CHOLESTEROL 222 mg/dL; HDL CHOLESTEROL 80 mg/dL; IRON 137 ug/dL (50-212); LDL CHOLESTEROL,CALCULATED 129 mg/dL; LDL/HDL RATIO 1.6 (<4.4); TOTAL IRON BINDING CAPACITY 335 ug/dL (250-450); TRANSFERRIN 239 mg/dL (203-362); TRIGLYCERIDES 64 mg/dL (48-352); VLDL CHOLESTEROL 13 mg/dL
[2023-06-29 16:12] LABS: ALBUMIN 4.2 g/dL (3.2-5.5); ALBUMIN/GLOBULIN RATIO 1.8 (1.0-2.2); ALKALINE PHOSPHATASE 84 IU/L (42-121); ALT ALANINE AMINOTRANSFERASE 17 IU/L (10-60); AST ASPARTATE AMINOTRANSFERASE 21 IU/L (10-42); BUN - BLOOD UREA NITROGEN 23 mg/dL (6-20); CALCIUM 9.5 mg/dL (8.5-10.3); CARBON DIOXIDE - CO2 26 mmol/L (21-32); CHLORIDE 107 mmol/L (101-111); GFR - MDRD 55 (>89); GLUCOSE 82 mg/dL (74-104); POTASSIUM 4.1 mmol/L (3.5-4.5); SODIUM 140 mmol/L (135-145); THYROID STIMULATING HORMONE 1.84 uIU/mL (0.34-5.60); TOTAL PROTEIN 6.6 g/dL (6.4-8.9)
[2023-06-29 16:18] LABS: FERRITIN 60.9 ng/mL (11.0-306.8)
== END 2023-06-29 09:30 | disposition home or self-care (01) ==
LOC: LAB.S 09:29
PROVIDERS: ATTEND Registered Nurse
DX: R53.83 Other fatigue (principal); Z13.228 Encounter for screening for other metabolic disorders; Z13.220 Encounter for screening for lipoid disorders; Z13.29 Encounter for screening for other suspected endocrine disorder; Z13.0 Encounter for screening for diseases of the blood and blood-forming organs and certain disorders involving the immune mechanism
CPT/HCPCS: 36415; 80053; 80061; 82607; 82728; 83540; 83721; 84443; 84466; 85025

== ENCOUNTER 2023-07-10 14:07 | Outpatient (CLI) | payer MEDICARE ==
--- NOTE | 2023-07-11 10:24 | Mammography Report ---
BILATERAL DIGITAL SCREENING MAMMOGRAM 3D/2D: 07/10/2023 CLINICAL: Routine screening. Comparison is made to exams dated: 07/06/2022 mammogram, 06/29/2021 mammogram, and 03/02/2016 mammogram - [facility]. There are scattered areas of fibroglandular density in both breasts (category b / 25%-50% glandular t issue). No significant masses, calcifications, or other findings are seen in either breast. There has been no significant interval change. IMPRESSION: NEGATIVE There is no mammographic evidence of malignancy. A 1 year screening mammogram is recommended. Based on the Tyrer Cuzick model (a risk assessment model) the patient's lifetime risk is 3.9% and her 10 year risk is 2.5%. According to the ACR, ACS, and NCCN guidelines, an annual breast MRI exam carlton g with mammogram is recommended if the patient's lifetime risk is 20% or greater. This exam was interpreted at Station ID: [id number]. NOTE: For mammograms, a report in lay terms will be sent to the patient. Approximately 15% of breast malignancies will not be visualized mammographically. In the management of a palpable breast mass, a negative mammogram must not discourage biopsy of a clinically suspicious lesion. Electronically Signed By: Maida [email or web address]:07/10/2023 16:48:54 letter sent: No_Letter ACR BI-RADS Category 1: Negative 3341F PARENCHYMAL PATTERN: (A) - The breast(s) demonstrate(s) scattered fibroglandular densities. BI-RADS CATEGORY: (1) - 1 RECOMMENDATION: (ANNUAL) - Recommend routine annual screening mammography. [id number] 1 year screening LATERALITY: (B)
== END 2023-07-10 14:08 | disposition home or self-care (01) ==
LOC: DI.S 14:07
DX: Z12.31 Encounter for screening mammogram for malignant neoplasm of breast (principal); R92.323 Mammographic fibroglandular density, bilateral breasts